=== PATIENT | female | born 1990 | race Caucasian/White ===

== ENCOUNTER 2016-09-02 22:45 | Inpatient (IN) | payer OTHER ==
[~2016-09-02] VITALS: Ht 157.5 cm; Wt 68.5 kg
--- NOTE | 2016-09-02 23:15 | NUR ---
PT PRESENTS TO ED WITH C/O VOMITING. PT REPORTS SHE HAS BEEN VOMITING SINCE BEGINNING OF AND WORSENED X2 DAYS AGO. PT IS 14 WKS PREG, G-3, P-0. PT DENIES ANY ABD PAIN. RESPIRATIONS EVEN AND UNLABORED. NO ACUTE DISTRESS NOTED. BED IN LOW POSITION. CALL LIGHT WITHIN REACH.
[2016-09-02 23:31] LABS: BASOPHIL % 0.4 % (0-2); PLATELET COUNT 242 x10^3mcL (130-400); RED CELL DISTRIBUTION WIDTH 12.8 % (11.5-14.5)
[2016-09-02 23:32] LABS: CALCIUM 9.2 mg/dL (8.5-10.1); CARBON DIOXIDE 23.7 mmol/L (21-32); CHLORIDE SERUM 101 mmol/L (98-107); CREATININE SERUM 0.7 mg/dL (0.6-1.0); GFR1 > 60 mL/min; GLUCOSE SERUM 86 mg/dL (74-106); POTASSIUM SERUM 3.6 mmol/L (3.5-5.1); SODIUM SERUM 135 mmol/L (136-145)
[2016-09-02 23:39] LABS: ALKALINE PHOSPHATASE 50 U/L (46-116); ALT/SGPT 29 U/L (14-59); AST/SGOT 21 U/L (15-37); BILIRUBIN TOTAL 0.3 mg/dL (0.20-1.00); LIPASE 149 IU/L (73-393); TOTAL PROTEIN, SERUM 7.5 g/dL (6.4-8.2)
[2016-09-02 23:42] LABS: ALBUMIN 3.3 g/dL (3.4-5.0)
[2016-09-03 00:16] LABS: UA SPECIFIC GRAVITY 1.015 (1.005-1.035); microscopic required? YES; urine erythrocyte TRACE (NEGATIVE)
[2016-09-03] MEDS ORDERED: DICLEGIS1 TCP PO (00:35)
[2016-09-03] MEDS ORDERED: MAC100 (00:35)
--- NOTE | 2016-09-03 01:10 | NUR ---
REPORT GIVEN TO BETO KAUR.
[2016-09-03 01:36] LABS: T3 TOTAL 2.15 ng/mL
--- NOTE | 2016-09-03 02:00 | NUR ---
ADMITTED PT FROM ER A/O X4 WITH DX HYPEREMESIS GRAVIDARIUM.PT 15 WEEKS .LMP 05/26/16,DENIES N/V AT THIS TIME.DENEIS ABDOMINAL PAIN.BP 102/65 MMHG,HR 74.ADMISSION CARE RENDERED.PLACED ON TELE # 21 WITH READING NSR.WILL CONTINUE TO MONITOR.
--- NOTE | 2016-09-03 02:07 | NUR ---
PT TRANSFERRED TO TELE BED 220B VIA GURNEY ON CM, WITH MYSELF, NATASHA MURPHY AND EMT ENZO AT PT SIDE. PT A&OX4,NO ACUTE DISTRESS NOTED, RESP EVEN AND UNLABORED, AMBULATED TO TELE BED WITH STEADY GAIT. NATASHA PÉREZ AT THE BEDSIDE TO ASSUME CARE OF PT.
[2016-09-03 02:22] LABS: MAGNESIUM 1.8 mg/dL (1.8-2.4); PHOSPHOROUS 4.3 mg/dL (2.5-4.9)
[2016-09-03 02:23] VITALS: BP 102/65
[2016-09-03 02:26] LABS: FREE T4 1.51 ng/dL (0.76-1.46)
[2016-09-03 02:29] LABS: CHOLESTEROL/HDL RATIO 2.3; FREE THYROXINE INDEX 4.7 ug/dL (1.4-4.5); T4(THYROXINE) 15.8 ug/dL (4.7-13.3)
[2016-09-03 03:58] LABS: AMPHETAMINE QUAL UR NONE DETECTED (NEG <=1000)
--- NOTE | 2016-09-03 04:43 | NUR ---
DENIES VOMITING SINCE ADMISSION.IVFLUIDS INFUSING WELL WITH FAMILY MEMBER AT BEDSIDE.ALL NEEDS MET.WILL CONTINUE TO MONITOR.
[2016-09-03 05:10] VITALS: BP 91/54
--- NOTE | 2016-09-03 06:42 | NUR ---
PT NAUSEATED AND FEELING SO HOT.NO VOMITING NOTED.ABOUT TO GIVE REGLAN ORDERED BUT VERBALIZED BAD REACTION SUCH AGITATION THE LAST TIME SHE HAD REGLAN.ICE CHIPS GIVEN AT THIS TIME.WILL PAGE .
--- NOTE | 2016-09-03 06:51 | NUR ---
DR. WRIGHT CALLED BACK AND MADE AWARE,TALKING TO PT AT THIS TIME.WILL ENDORSE TO AM NURSE.
--- NOTE | 2016-09-03 07:35 | NUR ---
PT RECEIVED. PATIENT IS A/A/O X 4. PATIENT DENIES PAIN AT THIS TIME. PATIENT IS HAVING FAMILY BRING HER PRESCRIBED HOME MEDICATION FOR NAUSEA. CURRENTLY ONLY WANTS TO TAKE ICE CHIPS UNTIL HOME MEDICATION ARRIVES. CALL LIGHT IS WITHIN REACH. WILL CONTINUE TO MONITOR.
--- NOTE | 2016-09-03 08:15 | NUR ---
DR. EDDY AND THE TEAM WERE MAKING ROUND TO SEE THE PATIENT. THE CARE PLAN WAS EXPLAINED TO THE PATIENT, AND THE PATIENT VERBALIZED UNDERSTANDING.
[2016-09-03 09:36] VITALS: BP 94/58
--- NOTE | 2016-09-03 10:10 | NUR ---
PT REPORTED THAT SHE HAD AN EPISODE OF VOMITING. PT HOME MEDICATION WAS CLEARED WITH PHARMACY AND ADMINISTERED PRN (SEE EMAR). WILL CONTINUE TO MONITOR. CALL LIGHT WITHIN REACH.
[2016-09-03 13:10] VITALS: BP 100/60
--- NOTE | 2016-09-03 14:10 | NUR ---
PATIENT STATES THAT SHE WOULD LIKE TO TRY AND ADVANCE HER DIET TO INCLUDE MORE SOLID FOODS. SHE STATES THAT SHE THINKS SHE COULD TRY AND SEE IF SHE COULD NOW TOLERATE SOLID FOODS WITHOUT EMESIS. PHYSICIAN NOTIFIED OF PATIENT'S REQUEST. AWAITING UPDATED DIETARY ORDERS. WILL CONTINUE TO MONITOR. CALL LIGHT WITHIN REACH.
--- NOTE | 2016-09-03 16:00 | NUR ---
PATIENT STATES THAT HER NAUSEA HAS WENT DOWN SIGNIFICANTLY. SHE WAS PROVIDED NADIR CRACKERS AFTER HER DIET WAS CHANGED TO REGULAR BY THE PHYSICIAN. PATIENT TOLERATED THE CRACKERS WITHOUT EPISODES OF EMESIS. CALL LIGHT WITHIN REACH. WILL CONTINUE TO MONITOR.
--- NOTE | 2016-09-03 17:27 | NUR ---
HEART TONES WERE EVALUATED BY DOPPLER BY DR. MONTANEZ-RESIDENT AT BEDSIDE. THE HEART RATE ARRANGED BETWEEN 150S AND 160S AND NORMAL.
[2016-09-03 17:49] VITALS: BP 94/54
--- NOTE | 2016-09-03 19:10 | NUR ---
PATIENT RESTING COMFORTABLY IN BED AND CHATTING WITH HER FAMILY MEMBERS AT BEDSIDE. PATIENT STATES THAT SHE WAS ABLE TO EAT THE PASTA THAT WAS PROVIDED WITH HER DINNER, BUT SHE FEELS NAUSEA AGAIN. PATIENT CONTINUES TO USE ICE CHIPS FOR NAUSEA. IV CONTINUES TO INFUSE AT 125ML/HR. WILL GIVE REPORT FOR NEXT SHIFT. CALL LIGHT WITHIN REACH.
--- NOTE | 2016-09-03 21:25 | NUR ---
Awake and verbally responsive. No resp.distress noted on room air. Denies pain at this time. On and off nausea but no vomiting noted. Will cont.to monitor. Call light within reach.
[2016-09-03 22:00] VITALS: BP 100/59
--- NOTE | 2016-09-04 04:16 | NUR ---
Afebrile. No significant change in condition noted. No n/v observed. Slept well. Cont.on IVF. Denies pain. In no apparent distress.
[2016-09-04 05:08] VITALS: BP 96/55
[2016-09-04 05:56] LABS: BASOPHIL % 0.4 % (0-2); PLATELET COUNT 208 x10^3mcL (130-400); RED CELL DISTRIBUTION WIDTH 13.1 % (11.5-14.5)
[2016-09-04 06:05] LABS: CALCIUM 8.4 mg/dL (8.5-10.1); CHLORIDE SERUM 104 mmol/L (98-107); CREATININE SERUM 0.6 mg/dL (0.6-1.0); GFR1 > 60 mL/min; GLUCOSE SERUM 92 mg/dL (74-106); MAGNESIUM 1.7 mg/dL (1.8-2.4); PHOSPHOROUS 3.6 mg/dL (2.5-4.9); SODIUM SERUM 136 mmol/L (136-145)
--- NOTE | 2016-09-04 07:42 | NUR ---
PT RECEIVED. AAO X 4. PATIENT IS CURRENTLY RESTING IN BED WITH FAMILY AT BEDSIDE. DENIES PAIN. DENIES VOMITING AT THIS TIME. STATES THAT SHE STILL HAS OCCASIONAL NAUSEA. STATES THAT SHE WANTS TO EAT BREAKFAST. IV INFUSING AT 125ML/HR. CALL LIGHT WITHIN REACH. WILL CONTINUE TO MONITOR.
--- NOTE | 2016-09-04 09:12 | NUR ---
DR EDDY AND TEAM DISCUSSED WITH PATIENT AT BEDSIDE. PLAN OF CARE AND PLANS FOR DISCHARGE WERE DISCUSSED. PATIENT VERBALIZED UNDERSTANDING. PATIENT WAS AGREEABLE WITH PLANS.
[2016-09-04 10:03] VITALS: BP 97/50
[2016-09-04 10:53] VITALS: BP 97/50
--- NOTE | 2016-09-04 12:53 | NUR ---
DISCHARGE INSTRUCTIONS GIVEN TO PATIENT. PATIENT VERBALIZED UNDERSTANDING. HEP LOCK REMOVED WITH TIP INTACT. TELE REMOVED AND RETURNED. ID BANDS REMOVED. PT IS BEING TRANSPORTED TO DISCHARGE OFFICE USING WHEELCHAIR. PT IN STABLE CONDITION. ALL BELONGINGS INCLUDING HOME MEDICTIONS WERE SENT HOME WITH PT.
== END 2016-09-04 12:50 | disposition home or self-care (01) | DRG 781 ==
LOC: ED 22:45 → DU 09-03 00:21
PROVIDERS: Emergency Medicine; ADMIT Family Medicine
DX: O21.1 Hyperemesis gravidarum with metabolic disturbance (principal); N17.0 Acute kidney failure with tubular necrosis; O26.831 Pregnancy related renal disease, first trimester; O25.11 Malnutrition in pregnancy, first trimester; O99.281 Endocrine, nutritional and metabolic diseases complicating pregnancy, first trimester; Z3A.13 13 weeks gestation of pregnancy; Z88.8 Allergy status to other drugs, medicaments and biological substances; E05.90 Thyrotoxicosis, unspecified without thyrotoxic crisis or storm; O26.891 Other specified pregnancy related conditions, first trimester
CPT/HCPCS: 83880; 84439; C9113; J2405; J2765; J7030